=== PATIENT | male | born 1965 | race Caucasian/White ===

== ENCOUNTER 2017-12-15 10:01 | Observation (INO) | payer OTHER ==
--- NOTE | 2017-12-15 11:21 | EDPHY ---
HPI/HX/ROS/PE/MDM Narrative: CHIEF COMPLAINT: Head injury 12/13 HISTORY OF PRESENT ILLNESS: This patient is a 52 year-old complaining of headache. Friday, he was in [place] on a trip with friends. On Friday morning, he woke around 5:30am with a headache. He went to use the restroom and had a syncopal episode while standing to urinate. He believes he struck his face on the toilet in his fall. He sustained a laceration to his lip and was evaluated at the ED in [place] and returned home yesterday. Since the incident, he has had facial pain and a headache in his temples. He endorses a generalized headache with a pressure sensation if he moves his head or shakes it at all. His headache waxes and wanes , better at night. He denies nausea or vomiting. No diplopia or other visual disturbances. No numbness or paresthesias in extremities. No fever, chills, chest pain, shortness of breath, palpitations, diarrhea, urinary complaints, Of note, the patient is especially concerned due to significant family history of fatal aneurysm in his mother at age 49. Patient denies personal history of headaches in the past. REVIEW OF SYSTEMS: A comprehensive 10 system review of systems is otherwise negative aside from elements mentioned in the history of present illness and medical decision making. PAST MEDICAL HISTORY: Mild hypertension. Labrum tear to right hip, recent MRI. SOCIAL HISTORY: . at bedside. VITAL SIGNS: Reviewed by me GENERAL: Well-developed, well-nourished, seems uncomfortable secondary to the headache discomfort. HEENT: Ecchymosis under right eye. Lower lip laceration, repaired. Eyes: No icterus, no injection. PERRL, EOMI. Mouth: moist mucous membranes. No erythema or lesions. Neck: supple with no adenopathy. LUNGS: Clear to auscultation bilaterally, no wheezes, rhonchi or rales. CARDIAC: Regular rate and rhythm, no rubs, murmurs or gallops. ABDOMEN: Soft, nontender, nondistended, bowel sounds normal. BACK: No CVA tenderness. EXTREMITIES: No trauma. No edema. Range of motion is normal throughout. NEURO: Alert and oriented, cranial nerves 2-12 are intact. Motor strength 5/5 throughout. Sensory intact to light touch. Normal gait. SKIN: Warm and dry, no rash. PSYCHIATRIC: Normal mentation, no agitation. Portions of this note were transcribed by a manager medical. I personally performed a history, physical exam, medical decision making, and confirmed accuracy of information the transcribed note. ED Course: This 52 year old male presents with headache and syncopal episode with fall. 11:[address] Schmidt, radiologist. CT negative for acute processes. 11:25 Discussed imaging results with patient. Discussed further workup for syncope and for headache. Plan for EKG, IVF administration. Discussed further workup including lumbar puncture. 12-LEAD EKG: Please see the full report in [facility]. My interpretation: Sinus bradycardia, abnormal T-waves anterolaterally. Troponin is 0.01. Plan for lumbar puncture. Patient declined narcotic pain medications. He did receive Decadron 10 mg IV. Procedure: Lumbar puncture. Indication: Headache. After verbal informed consent from the patient explaining the risks including infection, bleeding, and neurologic damage, the patient was prepped and draped in the usual sterile fashion. The back was anesthetized with 1% lidocaine with epinephrine. A gauge spinal needle was easily introduced at the L4-L5 interspace. Approximately 4 cc of clear fluid was obtained in four separate vials. Opening pressure was not obtained. Spinal needle introducer was replaced before withdrawing needle. There were no complications. The procedure was performed by myself. Patient tolerated the procedure well. LP results: Tube 1. Has 238 RBCs and no WBCs. Tube 4. Has 0 RBCs and 0 WBCs. 14:[address] Lui, hostel manager. Suggest possibility of echocardiogram , if this is normal patient could follow up as an outpatient for abnormal EKG in the setting of syncopal episode. Patient has not complained of chest pain, shortness of breath, lightheadedness, dizziness, or recurrent syncope. The syncopal episode that occurred 2 days ago happened during micturation. 1500: Discussed patient's case with Dr. Goldstein. Suggest CT angiogram of the head and neck to evaluate for aneurysm or dissection. EKG changes of T- wave inversions could potentially be related to a increased intracranial pressure/vascular abnormalities. Long discussion held with the patient and his . They are in agreement for further evaluation of the headache and abnormal EKG findings. Echocardiogram was ordered as well as CT angiograms. Patient's CT angiograms were read as negative by Dr. Eric Baum. Patient's echocardiogram demonstrates low EF and posterior wall somewhat akinetic. Recommendation is to admit to the hospital for further evaluation. Course discussed with Dr. Palma. Patient will be admitted to PCU for ongoing monitoring and will also consider CT chest angiogram in the morning. MDM: After history was obtained, and the physical exam performed, a differential for headache was considered including, but not limited to, subarachnoid hemorrhage, migraine headache, tension headache, headache from hypoxemia, dissection and infectious causes such as meningitis, sinusitis, encephalitis. Differential diagnosis of the patient's syncopal event was considered including but not limited to vasovagal syncope, arrhythmia, dehydration, angina, coronary artery disease, and blood loss. - Data Points Imaging Results: Head CT 12/15/17 10:45 Impression: No acute intracranial process. Findings and recommendations discussed with Bailey Joiner MD at 1121 hour, . Head CTA 12/15/17 15:20 Impression: 1. Hypoplastic right vertebral artery. Otherwise, normal CT angiogram of the head and neck. 2. Mildly prominent bilateral hilar lymph nodes, possibly reactive. Stenoses are calculated using [place] Symptomatic Carotid Endarterectomy Trial (NASCET) criteria. Findings and recommendations discussed with Bailey Joiner MD at 1630 hour, . Neck CTA 12/15/17 15:20 Impression: 1. Hypoplastic right vertebral artery. Otherwise, normal CT angiogram of the head and neck. 2. Mildly prominent bilateral hilar lymph nodes, possibly reactive. Stenoses are calculated using [place] Symptomatic Carotid Endarterectomy Trial (NASCET) criteria. Findings and recommendations discussed with Bailey Joiner MD at 1630 hour, . Imaging: Discussed imaging studies w/ sawmill moulder operator Radiologist Laboratory Results: Laboratory Results 12/15/17 12:11 12/15/17 12:11 Medications Given: Hydrocodone Bitart/Acetaminophen ([place] 5/325) 1 - 2 tab PO Q4HRS PRN PRN Reason: Pain, Moderate Able to Take PO Stop: 12/25/17 17:27 Last Admin: 12/16/17 07:58 Dose: 1 tab Sodium Chloride (Ns) 1,000 mls @ 75 mls/hr IV CONT ABRAM Stop: 06/13/18 17:29 Last Admin: 12/15/17 20:48 Dose: 1,000 mls Valacyclovir HCl (Valtrex) 500 mg PO DAILY ABRAM Stop: 01/15/18 08:59 Last Admin: 12/16/17 07:58 Dose: 500 mg Discontinued Medications Dexamethasone (Decadron Injection) 10 mg IVP EDNOW ONE Stop: 12/15/17 11:31 Last Admin: 12/15/17 12:11 Dose: 10 mg Hydromorphone HCl (Dilaudid) 1 mg IVP EDNOW ONE Stop: 12/15/17 11:32 Last Admin: 12/15/17 16:47 Dose: 1 mg Sodium Chloride (Ns) 1,000 mls @ 0 mls/hr IV ONCE ONE; Wide Open PRN Reason: Protocol Stop: 12/15/17 11:31 Last Admin: 12/15/17 12:10 Dose: 1,000 mls Sodium Chloride (Ns) 1,000 mls @ 0 mls/hr IV ONCE ONE; Wide Open PRN Reason: Protocol Stop: 12/15/17 13:23 Last Admin: 12/15/17 13:34 Dose: 1,000 mls Ketorolac Tromethamine (Toradol) 15 mg IVP EDNOW ONE Stop: 12/15/17 13:23 Last Admin: 12/15/17 13:34 Dose: 15 mg Point of Care Test Results: Chemistry 12/15/17 12:21 POC Troponin I 0.01 ng/mL ng/mL (0.00-0.08) Microbiology Results: MICROBIOLOGY 12/15/17 13:20 Cerebral Spinal Fluid Gram Stain - Final 12/15/17 13:20 Cerebral Spinal Fluid CSF Culture - Preliminary General Time Seen by Provider: 12/15/17 10:45 Initial Vital Signs: Initial Vital Signs Temperature (C) 36.3 C 12/15/17 10:16 Heart Rate 61 12/15/17 10:16 Respiratory Rate 18 12/15/17 10:16 Blood Pressure 132/84 H 12/15/17 10:16 O2 Sat (%) 96 12/15/17 10:16 O2 Delivery Mode Room Air Allergies/Adverse Reactions: No Allergies [NKA] Allergy (Verified 12/15/17 16:56) Home Medications: Medication Instructions Recorded Hydrocodone/APAP 5/325 [[place] 1 tab PO Q6H PRN #10 tab 12/15/17 5/325 (RX)] Ibuprofen [Motrin (*)] 600 mg PO Q6H PRN 12/15/17 valACYclovir [Valtrex (*)] 500 mg PO DAILY 12/15/17 Departure - Departure Disposition: [facility] Acute Clinical Impression: Abnormal EKG, Abnormal echocardiogram Headache Qualifiers: Headache type: unspecified Headache chronicity pattern: acute headache Intractability: not intractable Qualified Code(s): R51 - Headache Syncope Qualifiers: Syncope type: unspecified Qualified Code(s): R55 - Syncope and collapse Condition: Fair Report Scribed for: Bailey Joiner Report Scribed by: Sada Sanders Date of Report: 12/15/17 Time of Report: 11:28
[2017-12-15] MEDS ORDERED: DEXAMETHASONE 10 MG/ML VIAL IVP ONE (11:30)
[2017-12-15] MEDS ORDERED: NS 1,000 ML IV ONE ×2 (11:30→13:22)
[2017-12-15] MEDS ORDERED: HYDROmorphONE/DILAUDID 2 MG/ML INJ IVP ONE (11:31)
[2017-12-15] MEDS ORDERED: HYDROmorphONE/DILAUDID 1 MG/ML INJ ONE (11:49)
[2017-12-15 12:33] LABS: PLATELET COUNT 269 10^3/uL (150-400)
[2017-12-15] MEDS ORDERED: KETOROLAC 15 MG/1 ML SDV IVP ONE (13:22)
[2017-12-15] MEDS ORDERED: IOPAMIDOL (ISOVUE 370) 100 ML BTL IV ONE (15:29)
--- NOTE | 2017-12-15 15:55 | CPEKG ---
Test Reason : OPEN Blood Pressure : / mmHG Vent. Rate : 044 BPM Atrial Rate : 043 BPM P-R Int : 146 ms QRS Dur : 101 ms QT Int : 559 ms P-R-T Axes : 003 252 117 degrees QTc Int : 479 ms Sinus bradycardia Left anterior fascicular block Low voltage, extremity leads Abnrm T, consider ischemia, anterolateral lds Confirmed by Bailey Joiner ([id number]) on 12/15/2017 3:54:45 PM Referred By: Confirmed By:Bailey Joiner
--- NOTE | 2017-12-15 17:12 | ECHO ---
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 No LV hypertrophy. Low normal left ventricular systolic function. There is subtle basilar to mid inferolateral and inferor to inferior septal hypokinesis.. Normal size right ventricle. Normal RV function. Trivial to mild tricuspid valve regurgitation. The pulmonary artery pressure is normal. No pericardial effusion. No prior study Measurements: Chambers Valvular Assessment AV/MV Valvular Assessment TV/PV Normal Normal Normal Name Value Range Name Value Range Name Value Range Ao Anisa (MM): 3.5 cm (2.2 cm-3.7 AV Vmax: 1.34 m/s (1 m/s-1.7 TR Vmax: 2.67 mm/s ( - ) cm) m/s) TR PGmax: 29 mmHg ( - ) IVSd (2D): 0.9 cm (0.6 cm-1.1 AV maxP mmHg ( - ) syst. PAP: 34 mmHg ( - ) cm) LVOT Vmax: 0.74 m/s (0.7 m/s-1.1 PV Vmax: 1.00 m/s (0.6 m/s-0.9 LVDd (2D): 6.2 cm (4.2 cm-5.9 m/s) m/s) cm) MV E Vmax: 0.68 m/s ( - ) PV PGmax: 4 mmHg ( - ) LVDs (2D): 4.6 cm (2.1 cm-4 MV A Vmax: 0.44 m/s ( - ) cm) MV E/A: 1.55 ( - ) LVPWd (2D): 0.9 cm (0.6 cm-1 cm) Visual EF: 50 % Continued Measurements: Chambers Valvular Assessment AV/MV Valvular Assessment TV/PV Patient: JANNETH GO Study Date: 12/15/2017 Page 1 of 2 04:05 PM Name Value Name Value Name Value LADs Lon.7 cm MV E/E' Septal: 11.60 CVP (est.): 5 mmHg LA Area: 16.5 cm2 MV E/E' Lateral: 11.40 Findings: Left Ventricle: Left ventricle upper limits of normal. No LV hypertrophy. Low normal left ventricular systolic function. The ejection fraction is visually estimated to be 50 %. Normal diastolic LV function. There is subtle basilar to mid inferolateral and inferor to inferior septal hypokinesis.. Right Ventricle: Normal size right ventricle. Normal RV function. Left Atrium: The left atrium is normal in size. Right Atrium: The right atrium is normal in size. Mitral Valve: The mitral valve is normal in appearance and function. There is no mitral valve regurgitation. Aortic Valve: The aortic valve is tri-leaflet. The aortic valve is normal in appearance and function. Tricuspid Valve: Trivial to mild tricuspid valve regurgitation. The pulmonary artery pressure is normal. Pulmonic Valve: The pulmonic valve is normal in appearance and function. Aorta: The aorta is normal. Pericardium: No pericardial effusion. (No Signature Object) Patient: JANNETH GO Study Date: 12/15/2017 Page 2 of 2 04:05 PM [id number]
[2017-12-15] MEDS ORDERED: HYDROmorphone HCL 0.5 MG/0.5 ML SYR IVP PRN (17:28)
[2017-12-15] MEDS ORDERED: ONDANSETRON 4 MG/2 ML VIAL IVP PRN (17:28)
[2017-12-15] MEDS ORDERED: ACETAMINOPHEN 325 MG TAB PO PRN (17:28)
[2017-12-15] MEDS ORDERED: ONDANSETRON DISINTEGRATING 4 MG TAB PO PRN (17:28)
[2017-12-15] MEDS ORDERED: NS 1,000 ML IV SCH (17:30)
--- NOTE | 2017-12-15 18:13 | GHP ---
DATE OF ADMISSION: 12/15/2017 CHIEF COMPLAINT: Headache. HISTORY OF PRESENT ILLNESS: This is a 52-year-old man, who presents with a headache. History starte d 4 days ago when he was visiting friends in [place]. He was not feeling well that night, had approx imately 4 beers, went to bed at 10:30. He woke up at about 5:30 having to urinate. As he was in the bathroom he noticed that he had a headache and then had a sudden loss of consciousness. He awoke so mewhat confused to find blood on the floor. Cleaned that up. He then noticed that he was bleeding a nd that he had urinated on himself. He then went into the pool to clean himself off. After that, he wanted to go to the hospital, tried to find his friend's keys, but was unable to figure out how to s tart the car and drive to the hospital. He thus had his friend drive him. In the emergency room the re he received a few sutures to a laceration on his lip. No additional workup was done at that point . He has since had a headache and not really felt very well. His headache has been persistent, thro bbing central location. He feels as though he has not quite been himself with mild confusion since . He was able to travel back to [place] uneventfully however. He notes that he has not had any c hest pain, shortness of breath during this episode. He has had infrequent palpitations throughout hi s life. He has never seen a tumbler machine operator or had other cardiac workup. He presented to the emergency department today concerned that he may have an aneurysm as his mother of an aneurysm at 49. PAST MEDICAL/SURGICAL HISTORY: 1. Mild hypertension. 2. Right hip labral tear. 3. L5-S1 microdiskectomy. MEDICATIONS: Please see medication reconciliation. ALLERGIES: No known drug allergies. FAMILY HISTORY: Per HPI. SOCIAL HISTORY: He occasionally drinks alcohol. He does not smoke. REVIEW OF SYSTEMS: A 10-point review of systems is conducted and is negative except per HPI. PHYSICAL EXAM: VITAL SIGNS: Blood pressure 127/69, heart rate 55, respiration rate 16, saturating 9 6% on room air. Temperature 36.3. GENERAL. This is a pleasant man who is somewhat sedated after rec eiving Dilaudid. Otherwise no acute distress. HEENT: Shows him to have a laceration on his lip whic h is scabbed over. He has no tongue laceration. CARDIOVASCULAR: Exam shows regular rate and rhythm. No murmurs, rubs, or gallops. NECK: Shows no carotid bruits. RESPIRATORY: Exam shows him to be br eathing comfortably. His lungs are clear bilaterally. ABDOMEN: Soft, nontender, nondistended. SKI N: Exam showed no rash. exam shows no Vinson. NEUROLOGIC: Exam shows him to be alert and oriented x3. He is moving all extremities. Motor is inta ct in the upper and lower extremities. Cranial nerves 2 2-12 are grossly intact. Sensation to light touch is intact. LABS: CBC is normal. Basic metabolic panel is normal. Troponin is negative. He had a lumbar punct ure, fourth tube shows no reds, no whites, the glucose is 59, total protein is 55. Gram stain is neg ative. DATA: 1. Discussed this with Dr. Lui. Will admit to PCU. 2. I reviewed his echocardiogram that shows some subtle basilar and mid inferolateral and inferior s eptal hypokinesis with mildly large left ventricular but at the upper limits of normal. No left vent ricular hypertrophy. 3. CT angio of the head and neck showed a hypoplastic right vertebral artery but nothing acute. No aneurysm. He does have some mildly reactive hilar lymph nodes. 4. Head CT scan shows nothing acute. 5. EKG shows some T-wave inversions most prominent in leads V4 through V6. IMPRESSION AND PLAN: Syncope: Concerning given the degree of injury that he sustained. Certainly c ardiac etiologies need to be evaluated. We will monitor him on telemetry. Discussed with Dr. Hu juan recommend CT coronary tomorrow. She has a very low suspicion for acute coronary syndrome or signif icant coronary artery stenosis. Also consider neurologic in the setting of a headache as well as con fusion. I will ask Neurology to see him. Would consider seizure given his alcohol intake and postic brayden state as well as possible loss of bladder. Headache is better now that he has received some Dila udid but will follow this with time. Certainly ongoing headache and mild confusion may be postconcus sive in nature. There are no facial fractures seen on CT scan of his head. /[id number]/MODL
--- NOTE | 2017-12-15 18:48 | GCON ---
CARDIOLOGY CONSULTATION DATE OF CONSULTATION: 12/15/2017 CHIEF COMPLAINT: Syncope, abnormal EKG. HISTORY OF PRESENT ILLNESS: We were asked by Dr. Joiner to visit with Mahesh. The patient is a 52-y ear-old male with no known cardiovascular problems. Over the weekend, he was out of town at a get to gether with friends. On Friday evening, he had 4 alcoholic beverages over 7 hours and reports that [place] was also drinking water at the same time. Early on Friday morning, he got up to urinate. He was standing at the toilet and had a sudden onset headache. The next thing he knew, he woke up "in a po ol of blood." He apparently hit the toilet on the way down with his face. He went to a local emerge ncy department and received stitches in his lip. Over the weekend, he continued to have a headache. This improved slightly when he laid down. He was not noticing any cardiovascular symptoms specifica lly. Because of ongoing and worsening headache, he presented to the ER today. He has had an LP nega tive for bleed, a head CT negative for aneurysm or mass or bleed. His EKG showed lateral T-wave inversions and a bedside echocardiogram showed a low normal ejection fr action and mild inferior hypokinesis. Therefore, we are asked to consult. Troponin has been negativ e. The patient, in general, is quite active, although he is exercising less recently due to some issues with inflammatory issues with his hip. He does not have problems with angina or dyspnea. He has nev er previously had syncope, but does report in the past several weeks, feeling intermittently lighthea ded at random times. He does occasionally notice palpitations described as a skipped beat, but this is not a new symptom. He did not notice palpitations prior to his episode of syncope over the weeken d. REVIEW OF SYSTEMS: A full 10-point review of systems is performed. Notable for that which is detail ed in history of present illness. He also admits to significant stress at work. Otherwise, review o f systems is negative. ALLERGIES: No known drug allergies. PAST MEDICAL HISTORY: 1. Hypertension is listed on his chart, but he does not take medications for this. 2. Herpes simplex. 3. Inflammatory changes and labral tear, right hip. OUTPATIENT MEDICATIONS: [place], Valtrex. SOCIAL HISTORY: The patient is and they have 3 children. 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 He drinks alco hol in moderation, denies cocaine or marijuana. He does not smoke cigarettes. FAMILY HISTORY: Grandfather of an [place]. No known coronary disease or sudden cardiac in fir st-degree relatives. PHYSICAL EXAM: VITAL SIGNS: Blood pressure 127/69, heart rate 55, oxygen saturation 96% on room air . He is afebrile. GENERAL: Well-appearing middle-aged male in no acute distress. HEENT: Sclerae are clear and free of jaundice. He does have ecchymosis over the right orbit and evidence of trauma status post repair to the lower lip. Normal dentition. CARDIOVASCULAR: JVP is less than 10. Carot ids equal and 2+ bilaterally without bruit. Regular rate and rhythm without murmur, rub, or gallop. LUNGS: Clear bilaterally without wheezes, rhonchi, or rales. ABDOMEN: Soft, nontender, nondistend ed without bruits, masses, or hepatosplenomegaly. EXTREMITIES: Warm and well perfused without cyano sis, clubbing, or edema. NEURO: Alert and oriented x3 without gross focal neurological deficits. A ppropriate mood and affect. LABORATORY DATA: CBC is normal. Basic metabolic panel is normal. Troponin negative. CSF is colorl ess with 0 white count. CSF tube #4 shows no white or red cells, fluid is colorless. Initial glucos e 59, total protein 55. Gram stain is negative on the CSF. EKG reviewed by me shows sinus bradycardia with lateral T-wave inversions. QT interval is normal. Echocardiogram reviewed by me, low normal ejection fraction of 50% to 55% with subtle inferior infero lateral hypokinesis. No significant valvular disease. Normal RV size and systolic function. QT damaso sures long but visually is not prolonged, 479 milliseconds, according to the computer. Head and neck CTA: Hypoplastic right vertebral artery. Otherwise normal CT angiogram of the head an d neck. Head CT: No acute intracranial process. ASSESSMENT AND PLAN: A 52-year-old male with no previous cardiovascular disease, now presenting with ongoing headache after an episode of syncope with facial injury, nonspecifically abnormal EKG, and m ildly abnormal echo. 1. Syncope: Certainly, this could be vasovagal given the fact that he was vasovagal/micturition syn cope. He has never previously had syncope. I do think he should be admitted for monitoring on telem etry and we could consider a 30 day outpatient monitor as well. I doubt a primary cardiac arrhythmic etiology. 2. Abnormal EKG: This is nonspecific. These are not classic EKG findings for elevated intracranial pressure. He has been evaluated in the Emergency Room with an LP and brain imaging and will also be seeing Neurology. Troponin is negative and he is not having chest pain. I do suggest a CT coronary angiogram tomorrow to avoid a 2nd dye load today, to rule out obstructive coronary artery disease, w hich I think is unlikely, but also evaluate for anomalous coronary arteries. 3. Borderline abnormal echo with low-normal ejection fraction and subtle inferior inferolateral hypo kinesis. Would recommend CT coronary angiogram as per #2. 4. Headache: Workup so far has been negative. Neurology will be consulted. May need further imagi ng. Will be monitored overnight. Case discussed with Dr. Denis Fowler and Dr. Bailey Joiner. /[id number]/MODL
[2017-12-15] MEDS: HYDROCODONE/APAP 5/325 TAB PO PRN (20:51)
[2017-12-16 07:08] LABS: PLATELET COUNT 227 10^3/uL (150-400)
[2017-12-16] MEDS: HYDROCODONE/APAP 5/325 TAB PO PRN ×3 (07:58→16:41)
[2017-12-16] MEDS ORDERED: IOPAMIDOL (ISOVUE 370) 100 ML BTL IV ONE (08:30)
[2017-12-16] MEDS ORDERED: valACYclovir 500 MG TAB PO SCH (09:00)
--- NOTE | 2017-12-16 09:56 | GCON ---
REFERRING PHYSICIAN: Denis Fowler MD HISTORY: The patient is a 52-year-old gentleman who I am asked to see in neurologic consultation for an episode of loss of consciousness with facial trauma and headache. The patient has generally been healthy with no known neurologic or cardiac problems. He was on a trip with friends and had consume d perhaps 4 beers over the course of the day before going to bed around 10:00 p.m. because he says he was not really feeling particularly well, but was not having headache. He said he has stayed hydrat ed and nothing unusual had happened that day. He woke up around 5:30 in the morning 3 days ago and s aid he was going to urinate. He was standing and going to initiate urination when he said he noticed a fairly prominent headache and the next thing he knows he is awakening on the floor of the bathroom with a pool of blood around his mouth. He said his initial reaction was to simply try and clean up the blood and then he realized that the blood was coming from his lip when he looked in the mirror. He had a laceration to his lip and he tried to apply pressure to calm that down. He had not bitten h is tongue but had emptied his bladder. He went to the pool of the home where he was staying to wash off his clothing and clean up a bit. He then said he contemplated trying to go to the local emergenc y room and thought better of that and then a friend got up and saw him around 6 a.m. and went to the hospital. He was evaluated and released and says that no specific explanation was found for his symp toms, but he did not undergo extensive workup. He did well for the next 24 hours and then came home Friday evening, 2 days ago. Yesterday morning, he was still having some headache and decided to come to the emergency room because he has a history of his mother dying of a cerebral aneurysm. He subse quently said the headache is still present in the bitemporal frontal region of at least a moderate de gree. He has a little bit of soreness in his lip and his chin where he struck that and his teeth are a little bit sore, but otherwise no head complaints. No change in vision. He says he is a little s low in processing some of his words and word finding, but feels fairly clear headed most of the time. He certainly is not back to his baseline NS says with head movements, he can have a little bit of d iscomfort. His extremities are not numb or weak. He has a little bit of right intercostal flank bna n. He again has never anything like this. No history of syncopal events or head trauma or concussio ns in the past. He does have a family history of essential tremor and he also deals with mild essent ial tremor. SOCIAL HISTORY: He does not smoke. He has occasional alcohol. No drug use. MEDICATIONS: Home medication, Valtrex, Motrin and p.r.n. hydrocodone. ALLERGIES: No allergies. REVIEW OF SYSTEMS: Unremarkable except for that noted above. PHYSICAL EXAMINATION: VITAL SIGNS: Blood pressure 130/88, pulse of 48, respirations 14, temperature 36.5. GENERAL: Well-developed in no acute distress. He has a healing laceration to the lip that h as been sutured. He is awake and alert, but appears a little bit uncomfortable and cautious as he tri es not to move his head too much. He does not appear to be in acute distress, however. He is not co nfused. He is oriented. He has no trouble caring on the logical conversation and asking questions a nd following instructions and commands. CARDIAC: Regular rate and rhythm. No murmur. HEENT: Pupi ls 2 mm and reactive. Extraocular movements are intact. Normal facial sensation and strength. Tong ue protrudes midline. Motor exam normal muscle bulk and tone, with mild postural tremor. This is sy mmetric. Sensation is preserved for temperature, light touch. Reflexes are 2+ and symmetric. IMAGING: He had a head CT obtained which is unremarkable. The CT angiogram of the head and neck inga wed no evidence of aneurysm or dissection. He has had an echocardiogram obtained and this does not s how any significant abnormalities. The patient had a white count of 7,000 when we came, normal hemat ocrit. He had an unremarkable lumbar puncture with normal glucose, protein and cell count. IMPRESSION: Total needed time of 50 minutes. The patient most likely experienced a syncopal episode , perhaps in association with relative increased vagal tone from urination as well as the head pain h e was feeling. I think it is less likely that he experienced an acute seizure event. This was unwit nessed, so we cannot know for sure. The workup is underway to look for any primary cardiac event, wh ich also seems relatively low probability. We had a good discussion about concussion and he probabl y does have residual concussion accounting for the ongoing headache and some of his clouding of think ing, but his prognosis is good for complete recovery without residual deficits at this point. I do n ot think any additional neurologic workup is indicated. I think it is safe for him to resume driving if they do not find anything else in the cardiac workup and defer the rest of the judgment to hospit alist and Cardiology for determination of other diagnostic studies. He was given my card and instruc fernando to contact me should he have persistence of neurologic symptoms or questions that may arise. /[id number]/MODL
[2017-12-16 11:23] VITALS: BP 154/95
--- NOTE | 2017-12-16 11:37 | PDCARPN ---
Cardiology Progress Note Assessment/Plan: Assessment/plan: 52-year-old male with no significant past medical history admitted after an episode of syncope over the weekend. EKG and echo mildly abnormal. Troponins negative. Ongoing headache. 1. Syncope: This is most likely vasovagal/micturition syncope. 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 I would recommend a 2 week [employer] monitor in the outpatient setting and follow up with me after that. Awaiting CT coronary angiography to rule out obstructive coronary disease or anomalous coronary artery origins. 2. Borderline abnormal EKG and borderline abnormal echocardiogram with subtle inferior wall motion abnormality. Negative troponins. No angina. Doubt significant coronary disease. As above, awaiting CT coronary angiography for further assessment. 3. Headache: Appreciate Dr. Goldstein consultation. LP, CT angio of the brain , and CT of the brain yesterday were reassuring. This is likely post concussive headache. His CT coronary angiography is normal he may be discharged from a cardiovascular standpoint and follow up with me after his 2 week ambulatory monitor. 12/16/17 11:34 Subjective: Still has headache. Slept well. No chest pain. Reviewed/Discussed With: family, hospitalist Time Spent with Patient: greater than 25 minutes Time Spent with Patient: Greater than 25 minutes spent on this patients care, greater than 50% of time spent counseling, educating, and coordinating care regarding the above mentioned plan. Objective: Vital Signs (8 Hrs) Temp Pulse Resp BP Pulse Ox 12/16/17 11:22 36.5 C 71 18 154/95 H 93 12/16/17 07:46 36.5 C 48 L 14 130/88 H 96 12/16/17 05:19 36.5 C 47 L 16 131/80 H 94 Intake/Output (24 Hrs) 12/15/17 12/16/17 12/17/17 05:59 05:59 05:59 Intake Total 3100 Balance 3100 Intake: Oral (ml) 200 IV Infused (ml) 2900 Ns 1,000 ml @ 75 mls/hr 900 IV CONT ABRAM Rx#: [id number] Other: Weight 79.379 kg No acute distress. Regular rate and rhythm without murmur or gallop Lungs clear without wheeze rhonchi or rales No lower extremity edema Result Diagrams: 12/16/17 06:58 12/16/17 06:58 Cardiac Labs: Cardiac Lab Results (72 Hrs) 12/16/17 12/15/17 01:00 18:35 Troponin I < 0.012 < 0.012 Telemetry: Sinus rhythm and sinus bradycardia. Occasional PVCs ICD10 Worksheet Patient Problems: Problems Problem Status Onset Headache Acute Abnormal EKG Acute Syncope Acute Abnormal echocardiogram Acute
[2017-12-16] MEDS ORDERED: IBUPROFEN 200 MG TAB PO ONE (13:15)
--- NOTE | 2017-12-16 15:18 | ASDISCHSUM ---
Discharge Information Plan Status:Home with No Needs Medically Cleared to Leave: Discharge Date: CM D/C Disposition:Home, Routine, Self-Care ADT D/C Disposition:Home, Routine, Self-Care Projected Discharge Date: Transportation at D/C:Family Discharge Delay Reason: Follow-Up Date: Discharge Slot: Final Diagnosis: Placement Information Patient Contact Information Contact Name:OLIVER Relationship: Address:[address] [place] [address] City:[facility] Phone: State/Zip Code:[place] [address] Email: Financial Information Financial Class:HMO and PPO Plans Primary Plan Desc:[facility] Primary Plan Number:[id number] Secondary Plan Desc: Secondary Plan Number: Assessment Information LACE LACE Length of stay for Answers: Less than 1 day current admission # of Emergency department Answers: 1-2 visits in the last 6 months Score: 1 Date Signed: 12/16/2017 03:17 PM Electronically Signed By:Crystal Valdez [facility] CM Progress Note CM Note CM Note Notes: CM reviewed Pt's chart for d/c planning. pt is a 52 y/o male, who presented to the ED with an episode of lost consciousness with facial trauma and headache. Per nuro consult, ""he probablly does have residual concussion accounting for the ongoing headache and some of his clouding of thinking. Awaiting CT coronary angiography. 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 No CM needs have been identified. CM will follow for changed needs. D/C Plan: Independent. Date Signed: 12/16/2017 03:16 PM Electronically Signed By:Crystal Valdez Intervention Information
--- NOTE | 2017-12-16 21:48 | GDS ---
ALL DIAGNOSES: 1. Micturition syncope. 2. Coronary artery disease, nonobstructive. 3. Concussion. HOSPITAL COURSE: A 52-year-old man who presented 3 days after an episode of syncope due to ongoing h eadache. He had syncope while he was urinating and had fallen and hit his head on the toilet. He pr esented given the concern of ongoing headache and mild cognitive difficulties. Workup in the ED incl uded an EKG, which showed some T-wave inversions, which led to an echocardiogram, which showed low no rmal EF with some subtle wall motion abnormalities. Cardiology, as well as Neurology, were consulted . He underwent a CT coronary which showed 40% stenosis of the left main given a calcified plaque. B ecause of this, he will receive aggressive secondary prevention including aspirin, as well as statin. His last LDL was 107. He will follow up with Dr. Lui. Neurology feels that syncope was unlikely related to a seizure. Recommend follow up with Dr. Goldstein as needed if his postconcussive symptom s do not improve. Given a basic outline on treatment of concussions. He is otherwise discharged in stable condition. I have also given him a short prescription for [place] as he had significant damage to his lip. /[id number]/MODL
== END 2017-12-16 17:31 | disposition home or self-care (01) ==
LOC: F2W 16:42
PROVIDERS: ADMIT Internal Medicine; ATTEND Student in an Organized Health Care Education/Training Program
DX: R55 Syncope and collapse (principal); R51 Headache; S06.0X0A Concussion without loss of consciousness, initial encounter; S01.511A Laceration without foreign body of lip, initial encounter; W18.39XA Other fall on same level, initial encounter; Y92.002 Bathroom of unspecified non-institutional (private) residence as the place of occurrence of the external cause; I25.10 Atherosclerotic heart disease of native coronary artery without angina pectoris; R94.31 Abnormal electrocardiogram [ECG] [EKG]; I10 Essential (primary) hypertension; M24.851 Other specific joint derangements of right hip, not elsewhere classified; Z82.49 Family history of ischemic heart disease and other diseases of the circulatory system
CPT/HCPCS: 70450; 70496; 70498; 75574; 92523; 93005; 93306; 96361; 96374; 96375; 99285; G0378; 84484-PO; J1100; J1170; J1885; Q9967

== ENCOUNTER → 2018-02-23 | Outpatient (CLI) | payer OTHER ==
[~2018-02-23] MED LIST: GADOBUTROL 10 ML VIAL IVP ONE; PROPOFOL 200 MG/20 ML VIAL ONE; PROPOFOL/EMULSION 500 MG/50 ML BOTTLE IV ONE; REMIFENTANIL HCL 1 MG VIAL ONE; ROCURONIUM 100 MG/10 ML VIAL ONE; fentaNYL 100 MCG/2 ML INJ ONE
== END ==
LOC: FIMAGING 08:52
PROVIDERS: ATTEND Internal Medicine Cardiovascular Disease
DX: I21.9 Acute myocardial infarction, unspecified (principal)
CPT/HCPCS: A9585; J2704; J3010

== ENCOUNTER 2018-02-25 11:17 | Observation (INO) | payer OTHER ==
[2018-02-25] MEDS ORDERED: NS 1,000 ML IV ONE (11:18)
[2018-02-25] MEDS ORDERED: LIDOCAINE 1% 300 MG/30 ML SDV ONE (11:45)
[2018-02-25] MEDS ORDERED: HEPARIN 10,000 UNIT/10 ML MDV (1,000 UNIT/ML) ONE (11:45)
[2018-02-25] MEDS ORDERED: ISOPROTERENOL HCL/D5W 0.2 MG/50 ML BAG IV ONE ×2 (11:46→13:29)
[2018-02-25] MEDS ORDERED: BUPIVACAINE 0.75% 10 ML SDV ONE (11:46)
--- NOTE | 2018-02-25 12:02 | PDANEPAE ---
ANE History of Present Illness 52 yo for eps ANE Past Medical History - Cardiovascular History Hx Hypertension: No Hx Arrhythmias: Yes Hx Chest Pain: No Hx Coronary Artery / Peripheral Vascular Disease: No Hx CHF / Valvular Disease: No Hx Palpitations: No - Pulmonary History Hx COPD: No Hx Asthma/Reactive Airway Disease: No Hx Recent Upper Respiratory Infection: No Hx Oxygen in Use at Home: No Hx Sleep Apnea: No - Endocrine History Hx Diabetes: No - Chronic Pain History Chronic Pain: No (L5-s1 surgery back pain is relieved now) ANE Review of Systems Review of Systems: - Exercise capacity METS (RN): 5 METS ANE Patient History - Allergies Allergies/Adverse Reactions: No Allergies [NKA] Allergy (Verified 12/15/17 16:56) - Home Medications Home medications: home medication list seen and reviewed Home Medications: valACYclovir [Valtrex (*)] 500 mg PO DAILY 12/15/17 [Last Taken 12/15/17] Aspirin [Aspirin 81mg (*)] 81 mg PO DAILY 02/24/18 [Last Taken Unknown] - NPO status NPO Status: no food or drink >8 hours - Anes Hx Anes Hx: no prior problems - Smoking Hx Smoking Status: Never smoked ANE Physical Exam - Airway Neck exam: FROM Mallampati Score: Class 2 Mouth exam: normal dental/mouth exam - Pulmonary Pulmonary: no respiratory distress - Cardiovascular Cardiovascular: regular rate and rhythym - ASA Status ASA Status: II ANE Anesthesia Plan Anesthesia Plan: general endotracheal anesthesia
[2018-02-25] MEDS ORDERED: MIDAZOLAM 2 MG/2 ML VIAL IVP ONE (12:03)
[2018-02-25] MEDS ORDERED: MIDAZOLAM 2 MG/2 ML VIAL ONE (12:05)
[2018-02-25 12:07] LABS: PLATELET COUNT 202 10^3/uL (150-400)
[2018-02-25 12:20] LABS: INR 1.08 (0.83-1.16); PROTIME(PATIENT) 14.2 SEC (12.0-15.0)
[2018-02-25] MEDS ORDERED: IOPAMIDOL (ISOVUE-300) 100 ML BTL ONE ×3 (12:32→14:22)
--- NOTE | 2018-02-25 12:36 | PDGENHP ---
History & Physical Chief Complaint: Syncope, NSVT History of Present Illness: Syncope, NSVT, lateral wall scar on cardiac MRI Relevant Physical Exam: General: A&Ox4. Respiratory: CTA. Cardiac: regular rate and rhythm. Extremities: Normal exam, no edema, pulses 2+ bilaterally Cardiorespiratory Assessment: Mr. Maldonado is amenable to EP study +/- ablation and +/- ILR for further evaluation of syncope and NSVT, and coronary angiography for further evaluation of lateral wall abnormality noted on cardiac MRI
[2018-02-25] MEDS ORDERED: NALOXONE HCL 0.4 MG/ML INJ IVP PRN (14:49)
--- NOTE | 2018-02-25 14:50 | POSTANESTH ---
Post Anesthetic Evaluation Cardiovascular Status: Normal, Stable Respiratory Status: Normal, Stable Level of Consciousness/Mental Status: Can Participate in Eval Pain Control: Adequate, Prn Tx Ordered Nausea/Vomiting Control: Adequate, Prn Tx Ordered Complications Possibly Related to Anesthesia: None Noted
[2018-02-25] MEDS ORDERED: KETOROLAC 15 MG/1 ML SDV IVP ONE (16:40)
[2018-02-25] MEDS ORDERED: KETOROLAC 30 MG/1 ML SDV ONE (16:41)
--- NOTE | 2018-02-25 16:41 | CPEKG ---
Test Reason : OPEN Blood Pressure : / mmHG Vent. Rate : 047 BPM Atrial Rate : 046 BPM P-R Int : 150 ms QRS Dur : 099 ms QT Int : 502 ms P-R-T Axes : 059 255 000 degrees QTc Int : 444 ms Sinus bradycardia Left anterior fascicular block Low voltage, extremity leads Nonspecific T abnormalities, lateral leads Confirmed by Lakhwinder Bob ([id number]) on 02/25/2018 4:41:22 PM Referred By: Confirmed By:Lakhwinder Bob
--- NOTE | 2018-02-25 16:48 | CPEKG ---
Test Reason : OPEN Blood Pressure : / mmHG Vent. Rate : 057 BPM Atrial Rate : 057 BPM P-R Int : 152 ms QRS Dur : 099 ms QT Int : 470 ms P-R-T Axes : 072 250 091 degrees QTc Int : 458 ms Sinus rhythm Left anterior fascicular block Low voltage, extremity leads Nonspecific T abnormalities, lateral leads Confirmed by Lakhwinder Bob ([id number]) on 02/25/2018 4:48:30 PM Referred By: Confirmed By:Lakhwinder Bob
[2018-02-25] MEDS ORDERED: KETOROLAC 30 MG/1 ML SDV IVP ONE (17:00)
--- NOTE | 2018-02-25 18:53 | PDDXCAT ---
Diagnostic Cath Note - . 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
--- NOTE | 2018-02-25 19:01 | EPPROC ---
Electrophysiology Procedure Note: DIAGNOSTIC ELECTROPHYSIOLOGIC STUDY Procedures performed: 1. Fluoroscopy 2. EP evaluation with RA/RV/LA pace/record, with arrhythmia induction 3. EP evaluation with RA/RV pace record, insert/reposition catheter, with arrhythmia induction 4. Programmed stimulation + pacing after IV drug INDICATION: Syncope Ventricular tachycardia on monitor Scar on MRI LV inferior hypokinesis on echocardiogram PROCEDURE: Catheters & Anesthesia: The patient arrived in the Electrophysiology Laboratory in the fasting state. The right clavicular region, right groin, & left groin area were prepped & draped in the usual sterile manner. Anesthesiologist Dr. Lagos. Appropriate non-invasive blood pressure, pulse oximetry & end-tidal CO2 monitoring was established. All catheters were placed percutaneously using the modified Seldinger technique , and advanced into position under fluoroscopic guidance. One #7 Hungarian deflectable octapolar electrode catheter was advanced to the His-bundle position via the left femoral vein (2mm spacing). One #7 Hungarian deflectable catheter with 10 pairs of electrodes was placed via the right femoral vein into the coronary sinus. Programmed stimulation was performed from the right atrium, right ventricle and coronary sinus (left atrium). Parahisian pacing demonstrated constant H-A interval with changing V-A intervals and stimulus-A intervals during capture and loss of capture of proximal RBB proving retrograde conduction over AV node. No atrial arrhythmias were inducible. Ventricular programmed stimulation was performed using standard protocol (2 pacing sites, 2 basic cycle lengths, up to 3 extrastimuli at twice pacing threshold). Ventricular burst pacing and long/short sequence pacing was also performed. Sustained monomorphic ventricular tachycardia, CL 210-220 ms was induced x 2, positive precordial concordance, negative in inferior leads. There was hemodynamic collapse during ventricular tachycardia, this required defibrillation. The catheters were removed. The patient was transferred to the cardiovascular holding area in stable condition. Vascular access sheaths were removed in the holding area. There were no apparent complications. CONCLUSIONS 1. Normal sinus and AV node function. 2. No evidence of accesory AV pathway presence. 3. Sustained monomorphic hemodynamically unstable ventricular tachycardia. 4. No apparent complications. RECOMMENDATIONS: 1. Dual chamber ICD placement. Patient has sinus bradycardia and will need atrial pacing in order to tolerate beta lincoln therapy. 2. Risks of ICD, subQ ICD vs transvenous ICD, standard vs retromuscular placement d.w. patient and . 3. Patient to avoid ultra marathons and other endurance training. Patient to avoid swimming in order to reduce risk of lead fracture. Patient Problems: Problems Problem Status Onset Abnormal EKG Acute Abnormal echocardiogram Acute Headache Acute Syncope Acute
[2018-02-26] MEDS ORDERED: BACITRACIN IRRIGATION/NS 50,000 UNITS/1,000 ML BTL IRR ONE (06:00)
[2018-02-26] MEDS ORDERED: NS 1,000 ML IV ONE (06:00)
[2018-02-26 06:35] LABS: PLATELET COUNT 191 10^3/uL (150-400)
[2018-02-26] MEDS ORDERED: LIDOCAINE 1% 300 MG/30 ML SDV ONE (07:19)
[2018-02-26] MEDS ORDERED: IOPAMIDOL (ISOVUE-300) 100 ML BTL ONE (07:19)
[2018-02-26] MEDS ORDERED: MIDAZOLAM 2 MG/2 ML VIAL IVP ONE (07:19)
[2018-02-26] MEDS ORDERED: BUPIVACAINE 0.75% 10 ML SDV ONE (07:19)
[2018-02-26] MEDS ORDERED: HYDROmorphONE/DILAUDID 2 MG/ML INJ IVP PRN (07:25)
[2018-02-26] MEDS ORDERED: DEXAMETHASONE 4 MG/ML VIAL IVP PRN (07:25)
[2018-02-26] MEDS ORDERED: NALOXONE HCL 0.4 MG/ML INJ IVP PRN (07:25)
[2018-02-26] MEDS ORDERED: ALBUTEROL 3 ML DEYVIAL IH PRN (07:25)
[2018-02-26] MEDS ORDERED: ONDANSETRON 4 MG/2 ML VIAL IVP PRN (07:25)
--- NOTE | 2018-02-26 07:25 | PDANEPAE ---
ANE History of Present Illness here for AICD ANE Past Medical History - Cardiovascular History Hx Hypertension: No Hx Arrhythmias: Yes Hx Chest Pain: No Hx Coronary Artery / Peripheral Vascular Disease: No Hx CHF / Valvular Disease: No Hx Palpitations: No - Pulmonary History Hx COPD: No Hx Asthma/Reactive Airway Disease: No Hx Recent Upper Respiratory Infection: No Hx Oxygen in Use at Home: No Hx Sleep Apnea: No - Endocrine History Hx Diabetes: No Hypothyroid: No Hyperthyroid: No Obesity: no - Renal History Hx Renal Disorders: No - Chronic Pain History Chronic Pain: No (L5-s1 surgery back pain is relieved now) ANE Review of Systems Review of systems is: negative Review of Systems: - Exercise capacity Exercise capacity: >=4 METS METS (RN): 5 METS ANE Patient History - Allergies Allergies/Adverse Reactions: No Allergies [NKA] Allergy (Verified 12/15/17 16:56) - Home Medications Home Medications: valACYclovir [Valtrex (*)] 500 mg PO DAILY 12/15/17 [Last Taken 02/24/18] Aspirin [Aspirin 81mg (*)] 81 mg PO DAILY 02/24/18 [Last Taken 02/24/18] - NPO status NPO Status: no food or drink >8 hours - Smoking Hx Smoking Status: Never smoked ANE Labs/Vital Signs - Labs Result Diagrams: 02/26/18 06:15 02/26/18 06:15 - Vital Signs Vital Signs: reviewed preoperatively; see RN documention for details Blood Pressure: 100/61 Heart Rate: 44 Respiratory Rate: 16 O2 Sat (%): 98 Height: 185.42 cm Weight: 77.111 kg ANE Physical Exam - Airway Neck exam: FROM Mallampati Score: Class 1 - Pulmonary Pulmonary: no respiratory distress - Cardiovascular Cardiovascular: regular rate and rhythym - ASA Status ASA Status: II ANE Anesthesia Plan Anesthesia Plan: GA with mask
[2018-02-26] MEDS ORDERED: ceFAZolin 2 GM/DEXTROSE 100 ML IV ONE (07:30)
[2018-02-26] MEDS ORDERED: fentaNYL 100 MCG/2 ML INJ ONE (07:31)
[2018-02-26] MEDS ORDERED: PROPOFOL/EMULSION 500 MG/50 ML BOTTLE IV ONE (07:35)
[2018-02-26] MEDS ORDERED: PROPOFOL 200 MG/20 ML VIAL ONE ×2 (08:19→08:43)
[2018-02-26] MEDS ORDERED: ASPIRIN 81 MG CHEWABLE TAB PO SCH (09:00)
[2018-02-26] MEDS: valACYclovir 500 MG TAB PO SCH (12:14)
[2018-02-26] MEDS: ASPIRIN 81 MG CHEWABLE TAB PO SCH (12:14)
[2018-02-26] MEDS: ROSUVASTATIN CALCIUM 10 MG TAB PO SCH (12:14)
--- NOTE | 2018-02-26 13:54 | ASMTCMCOM ---
CM Note CM Note Notes: 02/26/2018 Case Management Note Discussed with RN. Pt admitted for EP study. Pacemaker placed today. There are no case management d/c needs identified d/t pt age, marital status and independence in ADL's prior to admission. There are no therapy evals ordered at this time. Case Management d/c poc: independent with follow up as directed. Case Management available if needs change. Date Signed: 02/26/2018 01:54 PM Electronically Signed By:Namita Wen RN
[2018-02-26] MEDS ORDERED: HYDROCODONE/APAP 5/325 TAB PO PRN (18:01)
[2018-02-26] MEDS ORDERED: KETOROLAC 15 MG/1 ML SDV IVP ONE (18:15)
[2018-02-27 04:02] LABS: PLATELET COUNT 162 10^3/uL (150-400)
[2018-02-27] MEDS: ASPIRIN 81 MG CHEWABLE TAB PO SCH (08:41)
[2018-02-27] MEDS: valACYclovir 500 MG TAB PO SCH (08:42)
[2018-02-27] MEDS: ROSUVASTATIN CALCIUM 10 MG TAB PO SCH (08:42)
--- NOTE | 2018-02-27 10:21 | CPEKG ---
Test Reason : OPEN Blood Pressure : / mmHG Vent. Rate : 050 BPM Atrial Rate : 050 BPM P-R Int : 180 ms QRS Dur : 101 ms QT Int : 462 ms P-R-T Axes : 054 -79 098 degrees QTc Int : 422 ms Atrial-paced rhythm LAD, consider left anterior fascicular block Low voltage, extremity leads Nonspecific T abnormalities, lateral leads Confirmed by Lakhwinder Bob ([id number]) on 02/27/2018 10:20:54 AM Referred By: Confirmed By:Lakhwinder Bob
[2018-02-27 10:28] VITALS: BP 128/79
--- NOTE | 2018-02-27 10:28 | CPEKG ---
Test Reason : OPEN Blood Pressure : / mmHG Vent. Rate : 050 BPM Atrial Rate : 050 BPM P-R Int : 160 ms QRS Dur : 100 ms QT Int : 450 ms P-R-T Axes : 081 210 000 degrees QTc Int : 411 ms Atrial-paced rhythm Low voltage, extremity leads Nonspecific T abnormalities, lateral leads Minimal ST elevation, anterior leads Confirmed by Lakhwinder Bob ([id number]) on 02/27/2018 10:27:34 AM Referred By: Confirmed By:Lakhwinder Bob
--- NOTE | 2018-02-28 06:41 | GDS ---
SUPERVISING TELEVISION ENGINEERING TEACHER: Quan Mendoza MD. ADMISSION DIAGNOSES: 1. Wide-complex tachycardia. 2. Syncope. DISCHARGE DIAGNOSES: 1. Ventricular tachycardia, monomorphic 2. AICD implant. PROCEDURES PERFORMED DURING HOSPITALIZATION: 1. Electrocardiogram. 2. Electrophysiology study. 3. Echocardiogram. 4. AICD implant. 5. Coronary angiogram HOSPITAL COURSE: The patient presented to the [facility] on February 25, 2018, for EP study and coronary angiogram for further evaluation of wide-complex tachycardia noted on his extended ECG monitor following an episode of unheralded syncope several weeks ago. He also had a left lateral scar noted on cardiac MRI, which prompted recommendations for ischemic evaluation via coronary angiogram. His coronary angiogram demonstrated nonobstructive coronary artery disease. The electrophysiology study demonstrated inducible monomorphic ventricular tachycardia at 280 to 300 beats per minute and he subsequently underwent AICD implant yesterday morning. He has done well in the postoperative period without any concerning issues overnight. Device interrogation this morning demonstrates normal device function. He is appropriate and stable for discharge home today. PHYSICAL EXAMINATION: GENERAL APPEARANCE: No apparent distress. He is alert and oriented x4. CURRENT VITAL SIGNS: Blood pressure 128/79, heart rate 61, SpO2 94% on room air, temperature 36.6 degrees Celsius. HEENT: Head is normocephalic. Lips and tongue are pink and moist, with no signs of cyanosis. Conjunctivae are pink. NECK: Trachea is midline. 2+ carotid pulses bilaterally. No auscultated bruits. No jugular venous distention. RESPIRATORY : Lungs are clear to auscultation. No rhonchi, rales, or wheezes. No accessory muscle use. No intercostal muscle retraction noted. CARDIAC: Regular rate and rhythm, S1 and S2. No S3, S4, gallops, rubs, murmurs noted. SKIN: Left pectoral incision with clean and dry dressing. No apparent hematoma , minimal redness around the dressing. LABORATORY STUDIES: Drawn today. White blood cells 6.51. Hematocrit is stable. Hemoglobin is also stable. BMP is normal. PROCEDURES: Electrophysiology study, coronary angiogram, and AICD implant as above. Chest x-ray this morning demonstrates appropriate lead placement. EKG this morning demonstrates normal sinus rhythm without ST or T-wave abnormalities. Device interrogation this morning demonstrates normal device function. DISCHARGE MEDICATIONS: Please review discharge medication reconciliation sheet. No new medications have been started during this hospitalization. DISCHARGE INSTRUCTIONS: Left arm precautions reviewed in detail with patient and his . Activity restrictions also reviewed in detail. He is to engage in light activity for the next 10 days and then he may increase his baseline level of activity for a maximum duration of 60 minutes. He understands that it is not recommended that he participate in ultra marathon or marathon activities at this time or in the future. He will follow up in our device clinic in one week and he will follow up with Dr. Mendoza in one month. /[id number]/MODL MTDD
== END 2018-02-27 12:33 | disposition home or self-care (01) ==
LOC: FCATH 11:17 → F2W 14:54
PROVIDERS: ADMIT Internal Medicine Cardiovascular Disease; ATTEND Internal Medicine Cardiovascular Disease
DX: I47.2 Ventricular tachycardia (principal); R55 Syncope and collapse
CPT/HCPCS: 33249; 71046; 93005; 93454; 93620; 93621; 93623; G0378; C1721; C1731; C1760; C1777; C1898; J0690; J1644; J1885; J2250; J2704; J3010; Q9967